=== PATIENT | female | born 1955 | race Caucasian/White ===

== ENCOUNTER → 2016-07-31 | Outpatient (CLI) | payer MEDICARE ==
[~2016-07-31] MED LIST: "\\\"PREP SPRAY\\\"-TIN4 OZ"; ABILIFY15 MG PO; AMERGE2.5 MG PO; ARIPIPRAZOLE15 MG PO; B COMPLEX1 EACH PO; CALCIUM + VITA1 EACH PO; CATAPRES0.3 MG PO; FISH OIL 1,2001 EAC2 PO; GLUCOSAMINE CH1 EAC2 PO; HAIR SKIN NAIL1 EACH PO; HYDRODIURIL25 MG PO; KLONOPIN0.5 MG PO; KLOR-CON M2020 MEQ PO; L-CARNITINE500 MG PO; LIPITOR20 M1 PO; LIVER AID PO; LOPRESSOR50 MG PO; MELATONIN3 MG PO; MSM1000 MG PO; NORVASC5 MG PO; NYSTATIN1 EAC1 TOP; PREMARIN0.3 MG PO; PRILOSEC20 MG PO; PROBIOTIC1 EAC1 PO; PROVERA10 MG PO; SAW PALMETTO160 MG PO; SELENIUM200 MCG PO; TAB-A-VITE1 EACH PO; TOPAMAX50 MG PO; TYLENOL EXTRA500 MG PO; VISION VITAMIN1 EACH PO; VITAMIN B-125000 MC1 PO; VITAMIN C1000 MG PO; VITAMIN D35000 UNI1 PO; VITAMIN E1000 UNI1 PO; ZOLOFT100 MG PO; [UNRECOGNIZED DRUG - OTHER] PO
[2016-07-31 09:03] LABS: BASOPHIL # 0.1 K/uL (0.0-0.2); BASOPHIL % 1.3 %; EOSINOPHIL # 0.1 K/uL (0.0-0.5); EOSINOPHIL % 2.2 %; HEMATOCRIT 42.5 % (33.0-46.0); HEMOGLOBIN 14.3 g/dL (10.0-15.0); IMMATURE GRANULOCYTE # 0.1 K/uL (0.0-0.3); IMMATURE GRANULOCYTE % 1.3 %; LYMPHOCYTE # 1.4 K/uL (0.8-4.0); LYMPHOCYTE % 25.7 %; MCH 30.1 pg (27.0-34.0); MCHC 33.6 gm/dL (32.0-36.5); MCV 89.5 fl (83.0-98.0); MONOCYTE # 0.4 K/uL (0.0-1.0); MONOCYTE % 7.2 %; MPV 8.4 fl (9.4-12.4); NEUTROPHIL # (ANC) 3.4 K/uL (1.8-7.8); NEUTROPHIL % 62.3 %; NRBC % 0 /100WBC (0-0.00); PLATELET COUNT 247 K/uL (150-450); RBC 4.75 M/uL (3.50-5.50); RDW-CV 13.7 % (11.9-14.6); WBC 5.5 K/uL (4.0-11.0)
[2016-07-31 09:09] LABS: ALK PHOS 64 IU/L (33-138); ALT 43 IU/L (12-78); ANION GAP 12.5 (10.0-19.0); AST 25 IU/L (10-40); BLOOD UREA NITROGEN 22 mg/dL (6-24); CALCIUM 9.1 mg/dL (8.5-10.5); CHLORIDE 103 mMol/L (96-110); CO2 28 mMol/L (22-32); CREATININE 0.7 mg/dL (0.5-1.1); ESTIMATED GFR (MDRD EQUATION) > 60; POTASSIUM 3.5 mMol/L (3.7-5.1); SODIUM 140 mMol/L (135-145); TOTAL BILIRUBIN 0.6 mg/dL (0.0-1.5); TOTAL PROTEIN 7.3 g/dL (6.0-8.4)
== END | disposition disaster alternative care site (69) ==
LOC: GLAB 08:24
PROVIDERS: Internal Medicine Gastroenterology
DX: K74.60 Unspecified cirrhosis of liver (principal); K80.20 Calculus of gallbladder without cholecystitis without obstruction

== ENCOUNTER → 2016-08-22 | Outpatient (CLI) | payer MEDICARE | END | disposition disaster alternative care site (69) | LOC: GBCOE 10:30 | DX: Z12.31 Encounter for screening mammogram for malignant neoplasm of breast (principal); N63 Unspecified lump in breast; Z98.890 Other specified postprocedural states | CPT/HCPCS: G0202 ==

== ENCOUNTER → 2016-08-30 | Outpatient (CLI) | payer MEDICARE ==
--- NOTE | 2016-08-30 10:55 | NUR ---
[facility]. Introduced self and role of nurse navigator. Nurse navigator brochure given with my contact information circled. Permission received for follow up call tomorrow.
--- NOTE | 2016-08-31 13:37 | NUR ---
Unable to reach for follow up call after three attempts.
== END | disposition disaster alternative care site (69) ==
LOC: GPOC 08-29 10:00 → GBCOE 08-29 10:00
PROC: 0HBT3ZX Excision of Right Breast, Percutaneous Approach, Diagnostic (ICD-10-PCS; principal; 2016-08-30)
DX: R92.0 Mammographic microcalcification found on diagnostic imaging of breast (principal); R92.8 Other abnormal and inconclusive findings on diagnostic imaging of breast
CPT/HCPCS: J7050